=== PATIENT | female | born 1995 | race Two or more races ===

== ENCOUNTER 2023-07-03 18:13 | Emergency (ER) | payer OTHER ==
[~2023-07-03] VITALS: Ht 160 cm; Wt 63.5 kg
[2023-07-03 21:32] LABS: HEMATOCRIT 42.4 % (36.0-45.00); HEMOGLOBIN 15.2 g/dL (12.0-15.00); MEAN CELL VOLUME 79.6 fL (80.00-100.00); MEAN CORPUSCULAR HEMOGLOBIN 28.5 pg (27.00-32.0); MEAN CORPUSCULAR HGB CONC 35.8 g/dl (32.0-36.0); PLATELET COUNT 199 K/uL (150-450); RED BLOOD COUNT 5.32 M/uL (4.00-6.00); RED CELL DISTRIBUTION WIDTH 13.9 % (11.5-14.5)
[2023-07-03] MEDS ORDERED: ZITHROMAX200 MG PO (22:34)
[2023-07-03] MEDS ORDERED: ZITHROMAX500 MG PO (22:46)
== END 2023-07-03 22:48 | disposition home or self-care (01) ==
LOC: ER 18:13
PROVIDERS: Nurse Practitioner Family
DX: O99.511 Diseases of the respiratory system complicating pregnancy, first trimester (principal); J06.9 Acute upper respiratory infection, unspecified; Z3A.12 12 weeks gestation of pregnancy; Z87.09 Personal history of other diseases of the respiratory system; Z20.822 Contact with and (suspected) exposure to COVID-19

== ENCOUNTER 2023-12-30 13:07 | Outpatient (CLI) | payer OTHER ==
[~2023-12-30] VITALS: Ht 162.6 cm; Wt 79.4 kg
[~2023-12-30 13:07] MED LIST: ZITHROMAX200 MG PO; ZITHROMAX500 MG PO
[2023-12-30] MEDS ORDERED: RINGERS SOLUTION,LACTATED 1,000 ML IV SCH (13:15)
[2023-12-30] MEDS ORDERED: FAMOtidine 20 MG TABLET PO ONE (13:45)
[2023-12-30] MEDS ORDERED: PRENATAL TABLE1 EAC4 PO (14:33)
[2023-12-30] MEDS ORDERED: SYNTHROID100 MCG PO (14:33)
[2023-12-30] MEDS ORDERED: VALACYCLOVIR500 MG PO (14:33)
== END 2023-12-31 09:04 | disposition home or self-care (01) ==
LOC: OBS/DEL 13:07
PROVIDERS: ATTEND Obstetrics & Gynecology
DX: O26.893 Other specified pregnancy related conditions, third trimester (principal); Z3A.38 38 weeks gestation of pregnancy; V48.5XXA Car driver injured in noncollision transport accident in traffic accident, initial encounter; Y93.89 Activity, other specified; Y92.488 Other paved roadways as the place of occurrence of the external cause

== ENCOUNTER 2024-01-03 17:17 | Inpatient (IN) | payer OTHER ==
[~2024-01-03] VITALS: Ht 162.6 cm; Wt 80.7 kg
[~2024-01-03 17:17] MED LIST changes: +PRENATAL TABLE1 EAC4 PO; +SYNTHROID100 MCG PO; +VALACYCLOVIR500 MG PO
[2024-01-03] MEDS ORDERED: MISOPROSTOL 25 MCG TABLET ONE (18:02)
[2024-01-03 18:08] LABS: URINE APPEARANCE Clear; URINE BILIRRUBIN Negative (NEGATIVE); URINE BLOOD Small; URINE COLOR Yellow; URINE GLUCOSE Negative (NEGATIVE); URINE LEUKOCYTE Negative; URINE NITRATE Negative; URINE PROTEIN Negative (NEGATIVE)
[2024-01-03 18:09] LABS: HEMATOCRIT 36.5 % (36.0-45.00); HEMOGLOBIN 12.8 g/dL (12.0-15.00); MEAN CELL VOLUME 75.5 fL (80.00-100.00); MEAN CORPUSCULAR HEMOGLOBIN 26.5 pg (27.00-32.0); MEAN CORPUSCULAR HGB CONC 35.1 g/dl (32.0-36.0); PLATELET COUNT 209 K/uL (150-450); RED BLOOD COUNT 4.84 M/uL (4.00-6.00); RED CELL DISTRIBUTION WIDTH 16.8 % (11.5-14.5)
[2024-01-03 18:11] LABS: URINE BACTERIA 167.5 uL (0.0-1933); URINE RBC 25.4 uL (0.0-20.8); URINE WBC 7.4 uL (0.0-23.2)
[2024-01-03] MEDS ORDERED: hydrOXYzine PAMOATE 50 MG CAPSULE PO PRN (18:15)
[2024-01-03] MEDS ORDERED: MISOPROSTOL 25 MCG TABLET VAG ONE (18:15)
[2024-01-03 18:26] LABS: INR < 0.93; PARTIAL THROMBOPLASTIN TIME 26.1 SECONDS (22.0-34.0); PROTHROMBIN TIME 9.7 SECONDS (9.0-11.5)
[2024-01-03 18:40] LABS: ALBUMIN 2.4 gm/dL (3.4-5.0); BILIRUBIN TOTAL 0.35 mg/dL (0.3-1.2); CREATININE SERUM 0.69 mg/dL (0.55-1.02); GFR 100.59; GLOBULINA 3.8 G/DL (2.4-3.5); POTASSIUM 3.78 mEq/L (3.5-5.1); TOTAL PROTEIN 6.2 gm/dL (6.4-8.2); TSH 3.41 uIU/mL (0.358-3.74)
[2024-01-04] MEDS ORDERED: OXYTOCIN 500 ML IV SCH (07:45)
[2024-01-04] MEDS ORDERED: PROMETHAZINE HCL 25 MG/ML AMPUL ONE (11:23)
[2024-01-04] MEDS ORDERED: ERYTHROMYCIN BASE 1 GM TUBE OP ONE (11:24)
[2024-01-04] MEDS ORDERED: OXYTOCIN 20 UNITS/1000ML RL PIGGYBAG IV ONE (11:24)
[2024-01-04] MEDS ORDERED: CHLORHEXIDINE GLUCONATE 120 ML BOTTLE TOP ONE (11:24)
[2024-01-04] MEDS ORDERED: PROMETHAZINE HCL 25 MG/ML AMPUL IV ONE (12:00)
[2024-01-04] MEDS ORDERED: MEPERIDINE HCL/PF 25 MG/ML VIAL IV ONE (12:00)
[2024-01-04] MEDS ORDERED: LIDOCAINE HCL 100 MG/10ML VIAL ONE (14:51)
[2024-01-04] MEDS ORDERED: CHLORHEXIDINE GLUCONATE 120 ML BOTTLE TP SCH (15:45)
[2024-01-04] MEDS ORDERED: LIDOCAINE HCL 1% 200MG/20ML VIAL IJ SCH (15:45)
[2024-01-04] MEDS ORDERED: ERYTHROMYCIN BASE 1 GM TUBE OP SCH (15:45)
[2024-01-04] MEDS ORDERED: IBUprofen 400 MG TABLET PO PRN (15:45)
[2024-01-04] MEDS ORDERED: OXYTOCIN 10 UNITS/ML VIAL IV SCH (15:45)
[2024-01-05] MEDS ORDERED: BENZOCAINE/MENTHOL 90 ML BOTTLE TOP SCH (17:00)
[2024-01-05] MEDS ORDERED: FAMOtidine 20 MG TABLET PO SCH (21:00)
== END 2024-01-06 14:09 | disposition home or self-care (01) | DRG 807 ==
LOC: LDR 17:17 → OB/GYN 01-04 14:20
PROVIDERS: ADMIT Student in an Organized Health Care Education/Training Program; ATTEND Student in an Organized Health Care Education/Training Program
PROC: 4A1HXCZ Monitoring of Products of Conception, Cardiac Rate, External Approach (ICD-10-PCS; 2024-01-03)
PROC: 10E0XZZ Delivery of Products of Conception, External Approach (ICD-10-PCS; principal; 2024-01-04)
PROC: 0KQM0ZZ Repair Perineum Muscle, Open Approach (ICD-10-PCS; 2024-01-04)
DX: O70.1 Second degree perineal laceration during delivery (principal); Z37.0 Single live birth; Z3A.38 38 weeks gestation of pregnancy; Z20.822 Contact with and (suspected) exposure to COVID-19